=== PATIENT | female | born 1995 | race African-American/Black ===

== ENCOUNTER 2024-06-25 22:06 | Emergency (ER) | payer MEDICAID ==
[~2024-06-25] VITALS: Ht 177.8 cm; Wt 70.0 kg
[~2024-06-25 22:06] MED LIST: TYLENOL
[2024-06-25 22:13] VITALS: O2SAT 99
[2024-06-26] MEDS: KETOROLAC 15MG/ML VIAL IM ONE ×2 (01:06→04:32)
[2024-06-26] MEDS: KETOROLAC 15MG/ML VIAL IV ONE (06:25)
[2024-06-26] MEDS ORDERED: MORPHINE SULFATE 2 MG/ML INJ (NOT FOR IM USE) IV PRN (06:45)
[2024-06-26] MEDS ORDERED: ONDANSETRON HCL 4MG/2ML INJ IV PRN (06:45)
[2024-06-26] MEDS ORDERED: CLONIDINE 0.1MG TABLET PO PRN (06:45)
[2024-06-26] MEDS ORDERED: GUAIFENESIN 200MG/10ML SUGAR FREE UDC PO PRN (06:45)
[2024-06-26] MEDS ORDERED: DOCUSATE SODIUM 100MG CAPSULE PO PRN (06:45)
[2024-06-26] MEDS ORDERED: IPRATROPIUM/ALBUTEROL 0.5-3(2.5)MG/3ML NEB HHN PRN (06:45)
[2024-06-26] MEDS ORDERED: ACETAMINOPHEN 325MG TABLET PO PRN ×2 (06:45)
[2024-06-26] MEDS ORDERED: MAGNESIUM/ALUMINUM HYDROXIDE/SIMETHICONE 30ML UDC PO PRN (06:45)
[2024-06-26] MEDS ORDERED: DEXT 5%/0.9% NACL 1,000 ML IV SCH (07:00)
[2024-06-26] MEDS ORDERED: MVI, ADULT NO.1 10 ML, FOLIC ACID 1 MG, THIAMINE HCL 100 MG in SODIUM CHLORIDE 0.9% 1,0... IV SCH (07:30)
[2024-06-26 08:01] LABS: CLARITY URINE CLEAR (CLEAR); COLOR URINE YELLOW (YELLOW); GLUCOSE URINE NEGATIVE (NEGATIVE); KETONES URINE TRACE (NEGATIVE); LEUKOCYTE ESTERASE URINE NEGATIVE (NEGATIVE); NITRITE URINE NEGATIVE (NEGATIVE); OCCULT BLOOD URINE NEGATIVE (NEGATIVE); PH URINE 5.5 (4.5-8.0); PROTEIN URINE TRACE (NEGATIVE); SPECIFIC GRAVITY URINE 1.028 (1.005-1.030)
[2024-06-26 08:21] LABS: RBC URINE 0-2 /hpf (0-2); SQUAMOUS EPITHELIAL CELL URINE 1+ /lpf (RARE/1+); WBC URINE 0-2 /hpf (0-2)
[2024-06-26 08:22] LABS: BACTERIA URINE TRACE; MUCUS URINE 1+ /lpf (< = 2+); YEAST URINE NONE SEEN
[2024-06-26 08:29] LABS: *AMPHETAMINES SCREEN URINE NEGATIVE (NEGATIVE); *BARBITURATES SCREEN URINE NEGATIVE (NEGATIVE); *BENZODIAZEPINES SCREEN URINE NEGATIVE (NEGATIVE); *COCAINE SCREEN URINE PRESUMPTIVE POSITIVE (NEGATIVE); METHADONE URINE SCREEN NEGATIVE (NEGATIVE); OPIATES URINE SCREEN NEGATIVE (NEGATIVE); PHENCYCLIDINE URINE SCREEN NEGATIVE (NEGATIVE)
[2024-06-26 08:30] LABS: CANNABINOID URINE SCREEN PRESUMPTIVE POSITIVE (NEGATIVE); ECSTASY MDMA SCREEN URINE NEGATIVE (NEGATIVE)
[2024-06-26] MEDS ORDERED: FAMOTIDINE 20MG/2ML VIAL IV SCH (09:00)
[2024-06-26 09:30] VITALS: BP 126/84; PULSE 77; RESP 18; TEMP 36.9; O2SAT 100
== END 2024-06-26 06:40 | disposition short-term general hospital (02) ==
LOC: ER 22:06 → EDBEDREQ 06-26 03:45 → ER 06-26 06:40 → CANBEDREQ 06-26 08:02
DX: S82.202A Unspecified fracture of shaft of left tibia, initial encounter for closed fracture (principal); S01.511A Laceration without foreign body of lip, initial encounter; F12.10 Cannabis abuse, uncomplicated; V43.52XA Car driver injured in collision with other type car in traffic accident, initial encounter; Y93.89 Activity, other specified; Y92.89 Other specified places as the place of occurrence of the external cause; Y99.8 Other external cause status
CPT/HCPCS: 99285; 80305; 81025; 71101; 73590; 81003; 96374; 70450; 96372; J1885; 96375; J3411; J3490; J7030